=== PATIENT | female | born 1985 | race Caucasian/White ===

== ENCOUNTER 2022-11-21 09:40 | Emergency (ER) | payer BC ==
[~2022-11-21] VITALS: Ht 162.6 cm; Wt 90.7 kg
[2022-11-21] MEDS ORDERED: CYMBALTA30 MG PO (09:52)
[2022-11-21] MEDS ORDERED: LIALDA1.2 GM (09:53)
[2022-11-21] MEDS ORDERED: INTESTINEX680 M1 PO (11:36)
[2022-11-21] MEDS ORDERED: DOXYCYCLINE HY100 MG PO (11:36)
== END 2022-11-21 12:02 ==
LOC: ER 09:40
DX: L03.032 Cellulitis of left toe (principal); Z88.0 Allergy status to penicillin